=== PATIENT | female | born 1995 | race Caucasian/White ===

== ENCOUNTER 2018-03-01 13:16 | Emergency (ER) | payer SELFPAY ==
[~2018-03-01] VITALS: Wt 60.0 kg
[2018-03-01 13:26] VITALS: Wt 60.0 kg
[2018-03-01 15:03] VITALS: PULSE 85
[2018-03-01] MEDS ORDERED: ALBUTEROL 0.083% (NEB) 2.5 MG/3 ML AMP HHN STA (15:16)
--- NOTE | 2018-03-01 15:51 | ERD ---
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 SOB, dizzy, throat pain. speak full sent HPI 22-year-old female presenting with complaints of shortness of breath and dizziness with throat pain after she inhaled bleach. 3 hours prior to my evaluation patient was cleaning a bathroom with bleach and she started feeling dizzy. She did not drink orange as the cleaning solution. She states this is her only cleaning solution it was not dilated. Patient denies any other medical problems. NKDA. Surgical history denies. Social history denies. Patient states that while she is been waiting in the emergency room her symptoms of dizziness seem to have improved.patient is 23 weeks ROS All systems reviewed and are negative except as per history of present illness. Allergies Allergies: Coded Allergies: No Known Allergy (Unverified , 03/01/18) PMhx/Soc Medical and Surgical Hx: pt denies Medical Hx, pt denies Surgical Hx Hx Alcohol Use: No Hx Substance Use: No Hx Tobacco Use: No Smoking Status: Never smoker FmHx Family History: No diabetes, No coronary disease, No other Physical Exam Vitals Vital Signs Date Temp Pulse Resp B/P (MAP) Pulse Ox O2 O2 Flow FiO2 Time Delivery Rate 03/01/18 99 18 97 21 15:31 03/01/18 85 100 Room Air 15:03 03/01/18 97.6 114 22 114/59 100 13:26 (77) Physical Exam GENERAL: The patient is well-appearing, well-nourished, in no acute distress HEENT: Atraumatic. Conjunctivae are pink. Pupils equal, round, and reactive to light. There is no scleral icterus. Tympanic membranes clear bilaterally. Oropharynx clear. No nystagmus or photophobia. NECK: C-spine is soft and supple. There is no meningismus. There is no cervical lymphadenopathy. CHEST: Clear to auscultation bilaterally. There are no rales, wheezes or rhonchi. HEART: Regular rate and rhythm. No murmurs, clicks, rubs or gallops. Results 24 hrs Current Medications Medications Dose Sig/Grant Start Time Status Last (Trade) Ordered Route PRN Stop Time Admin Dose Reason Admin Albuterol 5 mg ONCE STAT 03/01/18 DC 03/01/18 (Proventil HHN 15:16 15:28 0.083% (Neb)) 03/01/18 15:17 Procedures/MDM ER course: Albuterol breathing treatment given ED. I spoke with poison control pharmacist, Kathleen. It was felt that given patient did not have dizziness or burning eyes that symptoms are resolving and no further action was needed. She recommended a breathing treatment to help relieve any tightness that may have developed in the lungs due to chemical inhalation. MDM: 22-year-old female presenting after inhaling bleach. I have low suspicion for secondary insult as vitals are stable and exam is non-concerning. Patient did receive a breathing treatment in the emergency room for symptomatic relief. I have low suspicion for bad outcomes of the fetus and this was confirmed after speaking with poison control. No ingestion was performed. Patient is discharged with supportive medications and told to follow-up with primary care. All questions answered at discharge Departure Diagnosis: Primary Impression: Chemical exposure Condition: Stable Patient Instructions: Chemical Inhalation Referrals: YONATHAN COELHO MD (PCP) Additional Instructions: FOLLOW UP WITH YOUR PRIMARY CARE PHYSICIAN TOMORROW.Return to this facility if you are not improving as expected. FABRICIO GUIDRY PA-C Mar 01, 2018 15:51
== END 2018-03-01 16:03 | disposition home or self-care (01) ==
LOC: FTE 13:16
DX: O9A.212 Injury, poisoning and certain other consequences of external causes complicating pregnancy, second trimester (principal); T54.91XA Toxic effect of unspecified corrosive substance, accidental (unintentional), initial encounter; R06.02 Shortness of breath; Z3A.23 23 weeks gestation of pregnancy
CPT/HCPCS: 94664

== ENCOUNTER 2018-03-30 10:36 | Outpatient (CLI) | payer MEDICAID ==
[~2018-03-30] VITALS: Ht 149.9 cm; Wt 60.0 kg
[2018-03-30 11:03] VITALS: Ht 149.9 cm; Wt 60.0 kg
[2018-03-30 11:04] VITALS: BP 108/73; PULSE 111
[2018-03-30] MEDS ORDERED: PNV11TAB PO (11:06)
[2018-03-30] MEDS ORDERED: SOD CHLORIDE 0.9% 1,000 ML IV ONE (12:30)
[2018-03-30] MEDS ORDERED: CEFTRIAXONE 1 GM/50 ML (PMX) 50 ML IVPB ONE (12:30)
[2018-03-30] MEDS ORDERED: SOD CHLORIDE 0.9% 1,000 ML IV SCH (18:30)
[2018-03-30] MEDS ORDERED: TERBUTALINE 1 MG/ML INJ SC ONE (20:30)
--- NOTE | 2018-03-31 02:46 | PN ---
Triage Information Date/Time Reason for visit: The patient was near to fainting in the clinic this morning was sent from her primary of these Weeks of Gestation 28 weeks and 1 day /Para G1 Diabetes: none Hypertention: none Objective Vital Signs Date Temp Pulse Resp B/P (MAP) Pulse Ox O2 O2 Flow FiO2 Time Delivery Rate 03/30/18 98.3 111 108/73 11:04 (85) Intake and Output 03/30/18 03/30/18 03/31/18 1515:00 23:00 07:00 IntakeIntake Total 750 ml 500 ml BalanceBalance 750 ml 500 ml Heart Rate: 140's Contractions: None Results/Medications Result Diagram: 03/30/18 1131 03/30/18 1131 Results 24 hrs Laboratory Tests Test 03/30/18 10:59 03/30/18 11:20 03/30/18 11:31 Bedside Glucose 89 Urine Color YELLOW Urine Clarity CLOUDY A Urine pH 8.0 Urine Specific [place] 1.020 Urine Ketones NEGATIVE Urine Nitrite NEGATIVE Urine Bilirubin NEGATIVE Urine Urobilinogen NEGATIVE Urine Leukocyte Esterase NEGATIVE Urine Microscopic RBC 0 Urine Microscopic WBC 5 Urine Squamous Epithelial Cells MODERATE Urine Amorphous Crystals FEW A Urine Bacteria FEW A Urine Mucus MODERATE Urine Hemoglobin NEGATIVE Urine Glucose NEGATIVE Urine Total Protein 2+ H White Blood Count 10.9 H Red Blood Count 3.52 L Hemoglobin 11.4 L Hematocrit 34.5 L Mean Corpuscular Volume 98.0 Mean Corpuscular Hemoglobin 32.4 Mean Corpuscular Hemoglobin Concent 33.0 Red Cell Distribution Width 13.2 Platelet Count 427 H Mean Platelet Volume 9.3 Immature Granulocytes % 0.800 H Neutrophils % 71.6 Lymphocytes % 20.6 Monocytes % 5.2 Eosinophils % 1.5 Basophils % 0.3 Nucleated Red Blood Cells % 0.0 Immature Granulocytes # 0.090 H Neutrophils # 7.8 H Lymphocytes # 2.3 Monocytes # 0.6 Eosinophils # 0.2 Basophils # 0.0 Nucleated Red Blood Cells # 0.0 Sodium Level 137 Potassium Level 3.7 Chloride Level 106 Carbon Dioxide Level 26 Anion Gap 5 Blood Urea Nitrogen 7 Creatinine 0.41 L Est Glomerular Filtrat Rate mL/min > 60 Glucose Level 93 Calcium Level 9.5 Total Bilirubin 0.1 L Direct Bilirubin 0.00 Indirect Bilirubin 0.1 Aspartate Amino Transf (AST/SGOT) 23 Alanine Aminotransferase (ALT/SGPT) 22 Alkaline Phosphatase 140 H Total Protein 7.0 Albumin 3.5 Globulin 3.50 H Albumin/Globulin Ratio 1.00 Imaging Results TECHNIQUE: Sonographic imaging of the cervix was performed. COMPARISON: 03/30/2018 FINDINGS: Real time imaging of the cervix was performed. The cervix measures 3.4 cm in length. IMPRESSION: The cervix measures 3.4 cm in length. RPTAT:AAJJ Kali Bass Physician Date Time Electronically viewed and signed by Kali Bass Physician on 03/30/2018 20:32 Disposition: Discharge Assessment/Plan 22 years old 1 with single intrauterine at 28 weeks and 1 day with HARJINDER of 06/21/2018 complaining of near fainting in the her primary office this morning. She states good movement. She denies nausea, vomiting, shortness of breath, chest pain, headache, visual changes, vaginal bleeding or LOF. Her exam was unremarkable except for left CVA tenderness. Urinalysis and urine culture performed - FHR: No sign of metabolic acidosis- Category I - She has no uterine contraction - Rocephin 1 dose IV and for possible UTI/pyelonephritis given. Prescription for Macrobid 100 mg twice daily given. - Symptoms and sign of labor, preeclampsia, kick count discussed with patient, she voiced understanding. All of her questions answered. - Patient was discharged home in stable condition with the appropriate discharge instructions provided. I would like patient to have close follow-up with her primary physician or outpatient clinic in 1-2 days or return to triage for worsening symptoms or any other urgent concerns. TORRI MOYER Mar 31, 2018 02:46
--- NOTE | 2018-03-31 05:02 | TRIAGE ---
OB Triage Datetime Report Generated by CPN: 03/31/2018 05:02 Datetime: 03/30/2018 18:16 Labor Evaluation Frequency: 5-6 Monitor Mode: External Duration (sec)2399: 30-50 Quality: Mild Pattern: Normal: <= 5 Contractions in 10 Minutes Resting Tone [place]: Relaxed Heart Rate FHR Baseline Rate: 145 Monitor Mode: External US Variability: Moderate 6-25 bpm Accelerations: 10X10 Decelerations: None Category: Category I Pain Assessment Pain Scale: 3 Pain Presence: Intermittent Pain Type: Cramping Pain Location: Perineum Pain Goal: 3 Pain Relief Measures: Comfort Measures Datetime: 03/30/2018 17:38 Labor Evaluation Frequency: 4-7 Monitor Mode: External Duration (sec)2399: 50-70 Quality: Mild Pattern: Normal: <= 5 Contractions in 10 Minutes Resting Tone [place]: Relaxed Heart Rate FHR Baseline Rate: 145 Monitor Mode: External US Variability: Moderate 6-25 bpm Decelerations: None Pain Assessment Pain Scale: 3 Pain Presence: Intermittent Pain Type: Cramping Pain Location: Perineum Pain Goal: 3 Pain Relief Measures: Comfort Measures Datetime: 03/30/2018 16:37 Labor Evaluation Frequency: 7-8 Monitor Mode: External Duration (sec)2399: 30-50 Quality: Mild Pattern: Normal: <= 5 Contractions in 10 Minutes Resting Tone [place]: Relaxed Heart Rate FHR Baseline Rate: 145 Monitor Mode: External US Variability: Moderate 6-25 bpm Accelerations: 10X10 Decelerations: None Category: Category I Pain Assessment Pain Scale: 3 Pain Presence: Intermittent Pain Type: Cramping Pain Location: Perineum Pain Goal: 0 Pain Relief Measures: Comfort Measures Datetime: 03/30/2018 15:32 Labor Evaluation Frequency: 2-4 Monitor Mode: External Duration (sec)2399: 30-50 Quality: Mild Pattern: Normal: <= 5 Contractions in 10 Minutes Resting Tone [place]: Relaxed Monitor Mode: External US Comments: multiple movements Pain Assessment Pain Scale: 3 Pain Presence: Intermittent Pain Type: Cramping Pain Location: Perineum Pain Goal: 3 Pain Relief Measures: Comfort Measures Datetime: 03/30/2018 14:42 Labor Evaluation Frequency: OCCAS Monitor Mode: External Duration (sec)2399: 10-20 Quality: Mild Pattern: Normal: <= 5 Contractions in 10 Minutes Resting Tone [place]: Relaxed Heart Rate FHR Baseline Rate: 145 Monitor Mode: External US Variability: Moderate 6-25 bpm Accelerations: 10X10 Decelerations: None Category: Category I Pain Presence: Intermittent Datetime: 03/30/2018 13:57 Comments: MULTIPLE MOVEMENTS, U/S ADJUSTED Datetime: 03/30/2018 12:55 Labor Evaluation Frequency: 3-6 Monitor Mode: External Duration (sec)2399: 30-50 Quality: Mild Resting Tone [place]: Relaxed Heart Rate FHR Baseline Rate: 145 Monitor Mode: External US Variability: Moderate 6-25 bpm Accelerations: None Decelerations: None Category: Category I Pain Assessment Pain Scale: 1 Pain Presence: Intermittent Pain Type: Cramping Pain Location: Abdomen Pain Goal: 3 Pain Relief Measures: Comfort Measures Datetime: 03/30/2018 12:19 Stage of : OB Triage Datetime: 03/30/2018 11:44 Labor Evaluation Frequency: 2-4 Monitor Mode: External Duration (sec)2399: 20-30 Quality: Mild Resting Tone [place]: Relaxed Heart Rate FHR Baseline Rate: 145 Monitor Mode: External US Variability: Moderate 6-25 bpm Decelerations: None Category: Category I Pain Assessment Pain Scale: 1 Pain Presence: Intermittent Pain Type: Cramping Pain Location: Abdomen Pain Goal: 3 Pain Relief Measures: Comfort Measures Datetime: 03/30/2018 11:17 Stage of : OB Triage Datetime: 03/30/2018 11:10 Stage of : OB Triage Datetime: 03/30/2018 10:51 Stage of : OB Triage Assessment Type: Triage Maternal Assessment Level of Consciousness: Fully Conscious DTR's/Clonus: DTRs 2+; No Clonus Headache: Denies Blurred Vision: No Respiratory Effort: Unlabored; Regular Rhythm; Equal Expansion Breath Sounds, Left: Clear and Equal Breath Sounds, Right: Clear and Equal Nausea/Vomiting: Denies RUQ Epigastric Pain: Denies Facial Edema: None Temperature Route: Axillary Fall Risk Assessment History of Falling: (0) No Secondary Diagnosis: (0) No Ambulatory Aid: (0) Bedrest/Nurse Assist IV Therapy: (0) No Gait: (0) Normal/Bedrest/Immobile Mental Status: (0) Oriented to Own Ability Fall Score: 0 Fall Risk Score Definition: No Risk: No action required Labor Evaluation Frequency: 0 Monitor Mode: External Pattern: Normal: <= 5 Contractions in 10 Minutes Resting Tone [place]: Relaxed Heart Rate FHR Baseline Rate: 155 Monitor Mode: External US Variability: Moderate 6-25 bpm Accelerations: None Decelerations: None Pain Assessment Pain Scale: 3 Pain Presence: Constant Pain Goal: 3 Pain Relief Measures: Comfort Measures Datetime: 03/30/2018 10:49 Time of Arrival: 03/30/2018 10:30 EGA: 28.1 Arrived By: Wheelchair Arrived From: Office Chief Complaint: BROUGHT FROM OFFICE, HAD SYNCOPEDIC EPISODE, CONTINUES TO BE DIZZY, UPPER AB DOMINAL PAIN THAT IS CONSTANT WHEN LYING DOWN Movement: Present Contractions: Denies/Absent Rupture of Membranes: Denies Vaginal Discharge: Denies Recent Sexual Intercouse: Denies Abdominal Trauma: Not Applicable Patient Complaints: Dizziness Time Provider Notified: 03/30/2018 11:17 Provider Notified: Dr Brown Initial Plan: MONITOR
== END 2018-03-30 21:33 | disposition home or self-care (01) ==
LOC: OBT 10:36 → L-D 10:36 → OBT 21:33
PROVIDERS: ATTEND Obstetrics & Gynecology
DX: O26.893 Other specified pregnancy related conditions, third trimester (principal); R55 Syncope and collapse; R10.9 Unspecified abdominal pain; Z3A.28 28 weeks gestation of pregnancy
CPT/HCPCS: 36415; 76817; 76818; 80053; 81001; 82962; 85025; 87086; 96360; 96361; 96365; 96372; J0696; J3105; J7030; Z7500; G0463